=== PATIENT | male | born 1960 | race African-American/Black ===

== ENCOUNTER 2018-06-27 13:10 | Inpatient (IN) | payer MEDICARE, MEDICAID ==
[~2018-06-27] VITALS: Ht 167.6 cm; Wt 74.8 kg
[~2018-06-27 13:10] MED LIST: AMLO1TAB15 PO; AMOX-421 PO; CALC667C PO; HYDR100T26 PO; METO5TAB86 PO; OMEP20CA4 PO; ONDA8TAB6 PO
[2018-06-27 14:54] LABS: HEMATOCRIT. 33.3 % (42.0-52.0); HEMOGLOBIN. 11.1 g/dL (14.0-18.0); MEAN CORPUSCULAR HEMOGLOBIN 30.5 pg (28.0-32.0); MEAN CORPUSCULAR VOLUME 91.6 fL (80.0-94.0); MEAN PLATELET VOLUME 9.5 fl (7.4-10.4); PLATELET 82 x1000/uL (130-400); RED BLOOD CELL COUNT 3.64 mill/uL (4.7-6.1); RED CELL DISTRIBUTION WIDTH 17.3 % (11.6-14.6)
[2018-06-27 14:58] LABS: INR 1.2; PARTIAL THROMBOPLASTIN TIME 30.3 sec (23.4-31.0); PROTHROMBIN TIME 11.9 sec (9.1-11.1)
[2018-06-27] MEDS ORDERED: MECLIZINE 25MG TABLET PO ONE (15:00)
[2018-06-27 15:03] LABS: PHOSPHORUS 1.6 mg/dL (2.5-4.9)
[2018-06-27 15:29] LABS: PLATELET ESTIMATE DECREASED
[2018-06-27] MEDS ORDERED: ACETAMINOPHEN 325MG TABLET PO PRN (15:45)
[2018-06-27] MEDS ORDERED: MAGNESIUM/ALUMINUM HYDROXIDE/SIMETHICONE 30ML UDC PO PRN (15:45)
[2018-06-27] MEDS ORDERED: DIPHENHYDRAMINE 50MG/ML VIAL IV PRN (15:45)
[2018-06-27] MEDS ORDERED: NA PHOS,M-B/NA PHOS,DI-BA ENEMA 118ML PR PRN (15:45)
[2018-06-27] MEDS ORDERED: ONDANSETRON HCL 4MG/2ML INJ IV PRN (15:45)
[2018-06-27] MEDS ORDERED: DOCUSATE SODIUM 100MG CAPSULE PO PRN (15:45)
[2018-06-27] MEDS ORDERED: HYDROCODONE/ACETAMINOPHEN 5/325MG TABLET PO PRN (15:45)
[2018-06-27] MEDS ORDERED: CLONIDINE 0.1MG TABLET PO PRN (15:45)
[2018-06-27] MEDS ORDERED: GUAIFENESIN 200MG/10ML SUGAR FREE UDC PO PRN (15:45)
[2018-06-27 16:00] VITALS: BP 135/80
[2018-06-27 17:47] VITALS: BP 135/80
[2018-06-27 20:00] VITALS: BP 114/42
[2018-06-28] VITALS: BP 131/63
[2018-06-28 04:00] VITALS: BP 134/79
[2018-06-28 07:34] LABS: EOSINOPHILS % 5.9 % (0.0-5.0); HEMATOCRIT. 30.6 % (42.0-52.0); HEMOGLOBIN. 10.4 g/dL (14.0-18.0); LYMPHOCYTES % 7.7 % (20.0-50.0); MEAN CORPUSCULAR HEMOGLOBIN 31.3 pg (28.0-32.0); MEAN PLATELET VOLUME 9.8 fl (7.4-10.4); MONOCYTES % 5.4 % (2.0-8.0); PLATELET 79 x1000/uL (130-400); RED BLOOD CELL COUNT 3.32 mill/uL (4.7-6.1); RED CELL DISTRIBUTION WIDTH 17.7 % (11.6-14.6)
[2018-06-28 07:56] LABS: CHLORIDE 94 mEq/L (98-107)
[2018-06-28 08:00] VITALS: BP 110/77
[2018-06-28] MEDS ORDERED: AMLODIPINE 10MG TABLET PO SCH (09:00)
[2018-06-28 10:30] VITALS: BP 135/73
== END 2018-06-28 14:42 | disposition home or self-care (01) | DRG 73 ==
LOC: ER 13:10 → 7WST 15:02 → EDBEDREQ 15:02 → ENRESERV 15:22 → SUPCPDRO 15:29
PROVIDERS: ADMIT Hospitalist; ATTEND Hospitalist
PROC: 5A1D70Z Performance of Urinary Filtration, Intermittent, Less than 6 Hours Per Day (ICD-10-PCS; principal; 2018-06-28)
DX: G90.8 Other disorders of autonomic nervous system (principal); N18.6 End stage renal disease; N25.81 Secondary hyperparathyroidism of renal origin; I12.0 Hypertensive chronic kidney disease with stage 5 chronic kidney disease or end stage renal disease; D63.1 Anemia in chronic kidney disease; E03.9 Hypothyroidism, unspecified; E78.5 Hyperlipidemia, unspecified; E83.39 Other disorders of phosphorus metabolism; E87.6 Hypokalemia; K31.84 Gastroparesis; Z82.49 Family history of ischemic heart disease and other diseases of the circulatory system; Z87.01 Personal history of pneumonia (recurrent); Z90.5 Acquired absence of kidney; Z99.2 Dependence on renal dialysis
CPT/HCPCS: 36415; 71045; 80048; 83735; 84100; 84443; 84484; 93005; 93306; 93970; 99285

== ENCOUNTER 2018-09-12 14:42 | Inpatient (IN) | payer MEDICARE, MEDICAID ==
[~2018-09-12] VITALS: Ht 165.1 cm; Wt 61.2 kg
[2018-09-12 16:00] LABS: BASOPHILS % 1.3 % (0.0-2.0); EOSINOPHILS % 5.8 % (0.0-5.0); HEMATOCRIT. 31.7 % (42.0-52.0); HEMOGLOBIN. 10.6 g/dL (14.0-18.0); LYMPHOCYTES % 12.4 % (20.0-50.0); MEAN CORPUSCULAR HEMOGLOBIN 30.9 pg (28.0-32.0); MEAN CORPUSCULAR VOLUME 92.7 fL (80.0-94.0); MEAN PLATELET VOLUME 9.6 fl (7.4-10.4); MONOCYTES % 7.9 % (2.0-8.0); NEUTROPHILS % 72.6 % (40.0-76.0); PLATELET 83 x1000/uL (130-400); RED BLOOD CELL COUNT 3.42 mill/uL (4.7-6.1); RED CELL DISTRIBUTION WIDTH 17.8 % (11.6-14.6)
[2018-09-12 16:05] LABS: CHLORIDE 95 mEq/L (98-107)
[2018-09-12] MEDS ORDERED: ACETAMINOPHEN 325MG TABLET PO PRN (22:15)
[2018-09-12] MEDS ORDERED: ONDANSETRON HCL 4MG/2ML INJ IV PRN (22:15)
[2018-09-12] MEDS ORDERED: CLONIDINE 0.1MG TABLET PO PRN (22:15)
[2018-09-12] MEDS ORDERED: HYDROCODONE/ACETAMINOPHEN 5/325MG TABLET PO PRN (22:15)
[2018-09-12] MEDS ORDERED: IPRATROPIUM/ALBUTEROL 0.5-3(2.5)MG/3ML NEB INH PRN (22:15)
[2018-09-12 23:00] VITALS: BP 146/81
[2018-09-13] VITALS (17 sets, daily range): BP systolic 123–170; BP diastolic 65–117
[2018-09-13] MEDS ORDERED: DEXTROSE 50% WATER 50ML SYRINGE IV PRN (01:15)
[2018-09-13] MEDS: BLOOD SUGAR DIAGNOSTIC STRIP TEST SCH ×11 (02:00→22:00)
[2018-09-13 06:04] LABS: BASOPHILS % 1.3 % (0.0-2.0); HEMATOCRIT. 31.5 % (42.0-52.0); HEMOGLOBIN. 10.8 g/dL (14.0-18.0); LYMPHOCYTES % 14.4 % (20.0-50.0); MEAN CORPUSCULAR HEMOGLOBIN 31.8 pg (28.0-32.0); MEAN CORPUSCULAR VOLUME 92.8 fL (80.0-94.0); MEAN PLATELET VOLUME 10.4 fl (7.4-10.4); MONOCYTES % 7.6 % (2.0-8.0); NEUTROPHILS % 69.7 % (40.0-76.0); PLATELET 90 x1000/uL (130-400); RED BLOOD CELL COUNT 3.39 mill/uL (4.7-6.1); RED CELL DISTRIBUTION WIDTH 17.5 % (11.6-14.6)
[2018-09-13 06:24] LABS: LDL CHOLESTEROL 31 mg/dL (5-100)
[2018-09-13 06:26] LABS: CREATINE KINASE 116 IU/L (39-308); HDL CHOLESTEROL 102 mg/dL (40-59)
[2018-09-13 06:28] LABS: CREATINE KINASE MB FRACTION 1.1 ng/mL (0.5-3.6)
[2018-09-13] MEDS ORDERED: BLOOD SUGAR DIAGNOSTIC STRIP TEST SCH (07:30)
[2018-09-13] MEDS: INSULIN LISPRO 100 UNITS/ML SUBCUT SCH ×4 (08:00→20:21)
[2018-09-13] MEDS ORDERED: CALCIUM ACETATE 667MG CAPSULE PO NR (13:15)
[2018-09-13 16:08] LABS: CREATINE KINASE 111 IU/L (39-308)
[2018-09-13 16:09] LABS: CREATINE KINASE MB FRACTION 1.1 ng/mL (0.5-3.6)
[2018-09-13] MEDS: CARVEDILOL 6.25 MG TABLET PO SCH (20:21)
[2018-09-14] VITALS (16 sets, daily range): BP systolic 116–175; BP diastolic 65–103
[2018-09-14] MEDS: BLOOD SUGAR DIAGNOSTIC STRIP TEST SCH ×12 (02:00→21:46)
[2018-09-14 06:58] LABS: BASOPHILS % 1.2 % (0.0-2.0); EOSINOPHILS % 6.9 % (0.0-5.0); HEMATOCRIT. 28.6 % (42.0-52.0); HEMOGLOBIN. 9.7 g/dL (14.0-18.0); LYMPHOCYTES % 13.4 % (20.0-50.0); MEAN CORPUSCULAR HEMOGLOBIN 31.7 pg (28.0-32.0); MEAN CORPUSCULAR VOLUME 93.3 fL (80.0-94.0); NEUTROPHILS % 69.5 % (40.0-76.0); PLATELET 84 x1000/uL (130-400); RED BLOOD CELL COUNT 3.06 mill/uL (4.7-6.1); RED CELL DISTRIBUTION WIDTH 17.9 % (11.6-14.6)
[2018-09-14 07:59] LABS: CHLORIDE 97 mEq/L (98-107)
[2018-09-14] MEDS: INSULIN LISPRO 100 UNITS/ML SUBCUT SCH ×4 (08:00→21:00)
[2018-09-14 08:43] LABS: PHOSPHORUS 1.8 mg/dL (2.5-4.9)
[2018-09-14] MEDS: CARVEDILOL 6.25 MG TABLET PO SCH ×2 (12:07→21:46)
[2018-09-14] MEDS: FOLIC ACID/VITAMIN B COMP W-C TABLET PO SCH (12:08)
[2018-09-14] MEDS: AMLODIPINE 5MG TABLET PO SCH (12:09)
[2018-09-14] MEDS: LEVOTHYROXINE SODIUM 100MCG TABLET PO SCH (18:59)
[2018-09-14] MEDS ORDERED: EPOETIN ALFA 10000UNITS/ML VIAL SUBCUT SCH (21:00)
[2018-09-15] VITALS (13 sets, daily range): BP systolic 133–168; BP diastolic 70–97
[2018-09-15] MEDS: BLOOD SUGAR DIAGNOSTIC STRIP TEST SCH ×3 (02:00→03:54)
[2018-09-15] MEDS: INSULIN LISPRO 100 UNITS/ML SUBCUT SCH (08:00)
[2018-09-15] MEDS: FOLIC ACID/VITAMIN B COMP W-C TABLET PO SCH (09:16)
[2018-09-15] MEDS: LEVOTHYROXINE SODIUM 100MCG TABLET PO SCH (09:17)
[2018-09-15] MEDS: CARVEDILOL 6.25 MG TABLET PO SCH (09:17)
[2018-09-15] MEDS: AMLODIPINE 5MG TABLET PO SCH (09:17)
[2018-09-15] MEDS ORDERED: LEVO100T9 PO (11:10)
[2018-09-15] MEDS ORDERED: EPOE10005 SUBCUT (11:10)
[2018-09-15] MEDS ORDERED: AMLO5TAB88 PO (11:10)
[2018-09-15] MEDS ORDERED: NEPVIT PO (11:10)
[2018-09-15] MEDS ORDERED: COR6 PO (11:10)
[2018-09-15] MEDS ORDERED: BLOOD SUGAR DIAGNOSTIC STRIP TEST SCH (12:30)
[2018-09-16] MEDS ORDERED: LEVOTHYROXINE SODIUM 25MCG TABLET PO SCH (07:30)
== END 2018-09-15 16:40 | disposition home or self-care (01) | DRG 638 ==
LOC: ER 14:42 → EDBEDREQTM 19:27 → EDBEDREQSVC 19:27 → EDBEDREQ 19:27 → ENRESERV 20:30 → 5EST 23:00
PROVIDERS: ADMIT Internal Medicine; ATTEND Internal Medicine
PROC: 5A1D70Z Performance of Urinary Filtration, Intermittent, Less than 6 Hours Per Day (ICD-10-PCS; 2018-09-13)
PROC: 5A1D70Z Performance of Urinary Filtration, Intermittent, Less than 6 Hours Per Day (ICD-10-PCS; principal; 2018-09-15)
DX: E11.649 Type 2 diabetes mellitus with hypoglycemia without coma (principal); I50.22 Chronic systolic (congestive) heart failure; I13.2 Hypertensive heart and chronic kidney disease with heart failure and with stage 5 chronic kidney disease, or end stage renal disease; E03.9 Hypothyroidism, unspecified; N18.6 End stage renal disease; N25.81 Secondary hyperparathyroidism of renal origin; E11.22 Type 2 diabetes mellitus with diabetic chronic kidney disease; E11.43 Type 2 diabetes mellitus with diabetic autonomic (poly)neuropathy; E78.5 Hyperlipidemia, unspecified; K31.84 Gastroparesis; M71.21 Synovial cyst of popliteal space [Baker], right knee; Z79.899 Other long term (current) drug therapy; Z82.49 Family history of ischemic heart disease and other diseases of the circulatory system; Z87.01 Personal history of pneumonia (recurrent); Z90.5 Acquired absence of kidney; Z99.2 Dependence on renal dialysis
CPT/HCPCS: 36415; 71045; 80048; 80061; 82533; 82550; 82553; 82962; 83036; 83520; 83735; 83880; 84100; 84439; 84443; 84484; 86376; 93005; 93970; 99285; J0885; J2405

== ENCOUNTER 2019-02-08 08:50 | Emergency (ER) | payer MEDICARE, MEDICAID ==
[~2019-02-08] VITALS: Ht 170.2 cm; Wt 68.0 kg
[~2019-02-08 08:50] MED LIST changes: -AMLO1TAB15 PO; +AMLO5TAB88 PO; -AMOX-421 PO; +COR6 PO; +EPOE10005 SUBCUT; +LEVO100T9 PO; +NEPVIT PO
[2019-02-08] MEDS ORDERED: ACETAMINOPHEN 325MG TABLET PO ONE (11:45)
[2019-02-08 13:30] VITALS: BP 144/83
== END 2019-02-08 14:12 | disposition home or self-care (01) ==
LOC: ER 08:50
DX: S09.8XXA Other specified injuries of head, initial encounter (principal); E11.22 Type 2 diabetes mellitus with diabetic chronic kidney disease; I13.11 Hypertensive heart and chronic kidney disease without heart failure, with stage 5 chronic kidney disease, or end stage renal disease; N18.6 End stage renal disease; Z99.2 Dependence on renal dialysis; W05.0XXA Fall from non-moving wheelchair, initial encounter; Y93.89 Activity, other specified; Y92.89 Other specified places as the place of occurrence of the external cause
CPT/HCPCS: 99284

== ENCOUNTER 2019-02-27 08:04 | Emergency (ER) | payer MEDICARE, MEDICAID ==
[~2019-02-27] VITALS: Ht 175.3 cm; Wt 75.0 kg
[2019-02-27] MEDS ORDERED: KETOROLAC 30MG/ML VIAL IV STA (08:31)
[2019-02-27] MEDS ORDERED: ONDANSETRON HCL 4MG/2ML INJ IV STA (08:31)
[2019-02-27 09:04] LABS: BASOPHILS % 1.7 % (0.0-2.0); EOSINOPHILS % 3.2 % (0.0-5.0); HEMATOCRIT. 35.4 % (42.0-52.0); HEMOGLOBIN. 11.8 g/dL (14.0-18.0); LYMPHOCYTES % 13.1 % (20.0-50.0); MEAN CORPUSCULAR HEMOGLOBIN 31.5 pg (28.0-32.0); MEAN CORPUSCULAR VOLUME 94.4 fL (80.0-94.0); MEAN PLATELET VOLUME 9.9 fl (7.4-10.4); MONOCYTES % 8.2 % (2.0-8.0); NEUTROPHILS % 73.8 % (40.0-76.0); PLATELET 114 x1000/uL (130-400); RED BLOOD CELL COUNT 3.74 mill/uL (4.7-6.1); RED CELL DISTRIBUTION WIDTH 17.5 % (11.6-14.6)
[2019-02-27 09:10] LABS: CHLORIDE 101 mEq/L (98-107); INR 1.5; PROTHROMBIN TIME 15.4 sec (9.6-11.0)
[2019-02-27 10:15] VITALS: BP 141/80
== END 2019-02-27 10:35 | disposition home or self-care (01) ==
LOC: ER 08:04
DX: R10.0 Acute abdomen (principal)
CPT/HCPCS: 36415; 80053; 83690; 85025; 85610; 96374; 96375; 99283; J1885; J2405

== ENCOUNTER 2020-09-03 22:46 | Emergency (ER) | payer MEDICARE, MEDICAID ==
[~2020-09-03] VITALS: Ht 170.2 cm; Wt 59.0 kg
[2020-09-03] MEDS ORDERED: SODIUM BICARBONATE 8.4% 1 MEQ/ML 50ML SYR IV ONE (23:15)
[2020-09-03] MEDS ORDERED: EPINEPHRINE 0.1MG/ML (1:10,000) 10ML SYR IV ONE (23:15)
[2020-09-03] MEDS ORDERED: CALCIUM CHLORIDE 1GM/10ML SYR IV ONE (23:15)
[2020-09-03] MEDS ORDERED: DEXTROSE 50% WATER 50ML SYRINGE IV ONE (23:15)
[2020-09-03 23:34] VITALS: BP 0/0
== END 2020-09-03 22:58 | disposition expired ==
LOC: ER 22:46
DX: S06.9X0A Unspecified intracranial injury without loss of consciousness, initial encounter (principal); I46.9 Cardiac arrest, cause unspecified; I12.0 Hypertensive chronic kidney disease with stage 5 chronic kidney disease or end stage renal disease; E11.22 Type 2 diabetes mellitus with diabetic chronic kidney disease; N18.6 End stage renal disease; R09.02 Hypoxemia; Z79.899 Other long term (current) drug therapy; Z99.2 Dependence on renal dialysis; X58.XXXA Exposure to other specified factors, initial encounter; Y93.89 Activity, other specified; Y92.89 Other specified places as the place of occurrence of the external cause; Y99.8 Other external cause status
CPT/HCPCS: 96374; 96375; 99285